=== PATIENT | female | born 1975 | race Caucasian/White ===

== ENCOUNTER 2018-05-09 12:22 | Emergency (ER) | payer SELFPAY | END 2018-05-09 12:35 | disposition left against medical advice (07) | LOC: E/R 12:22 | DX: Z53.21 Procedure and treatment not carried out due to patient leaving prior to being seen by health care provider (principal) ==

== ENCOUNTER 2018-06-21 15:33 | Inpatient (IN) | payer OTHER ==
[~2018-06-21] VITALS: Ht 157.5 cm; Wt 66.3 kg
[2018-06-21] MEDS ORDERED: SOD CHLORIDE 0.9% 1,000 ML IV STA (15:44)
--- NOTE | 2018-06-21 17:19 | ERD ---
ER Documentation Chief Complaint Chief Complaint PROBLEMS WITH EQUILIBRIUM; LEFT SIDED WEAKNESS HPI This is a 42-year-old female with a past medical history of hypertension, hyperlipidemia, diabetes who is presenting with 4 months of progressive worsening balance issues and left-sided weakness. The patient reports that her symptoms have been progressive in nature. She had a problem with her insurance until today, which is why she did not follow-up until now. The patient was seen in the clinic and there were concerns about a possible stroke that occurred 4 months ago, so she was referred to the emergency department for further assessment. The patient has a left-sided facial droop and has weakness to the left. The patient reports that when she walks, she feels very imbalanced and leans to the left. The patient also endorses a waxing and waning mild frontal headache without photophobia or phonophobia or nausea or vomiting. The patient denies feeling sick recently. The patient denies fever or chills. The patient does not endorse neck or back pain. The patient denies dizziness. She does not feel that the room is spinning. The patient has had no chest pain or trouble breathing. The patient denies nausea or vomiting. The patient denies abdominal pain. The patient denies changes to bowel movements. She does endorse a few days of increased urinary frequency and burning. ROS All systems reviewed and are negative except as per history of present illness. Medications Home Meds No Active Prescriptions or Reported Meds Allergies Allergies: Coded Allergies: No Known Allergy (Unverified , 06/21/18) PMhx/Soc Medical and Surgical Hx: pt denies Surgical Hx History of Surgery: No Anesthesia Reaction: No Hx Neurological Disorder: No Hx Respiratory Disorders: No Hx Cardiac Disorders: Yes (Hypertension, hyperlipidemia, diabetes) Hx Psychiatric Problems: No Hx Miscellaneous Medical Probl: No Hx Alcohol Use: No Hx Substance Use: No Hx Tobacco Use: No Smoking Status: Never smoker FmHx Family History: diabetes Physical Exam Vitals Vital Signs Date Temp Pulse Resp B/P (MAP) Pulse Ox O2 O2 Flow FiO2 Time Delivery Rate 06/21/18 97.6 68 20 135/77 100 Room Air 17:37 (96) 06/21/18 70 16 151/100 99 Room Air 16:28 (117) 06/21/18 71 17 141/85 16:24 (103) 06/21/18 78 15 146/87 16:21 (106) 06/21/18 77 18 146/87 97 Room Air 16:06 (106) 06/21/18 98.7 78 18 164/100 100 15:39 (121) Physical Exam Const: No apparent distress, well-developed, well-nourished Head: Normocephalic, Atraumatic Eyes: Normal Conjunctiva. Extraocular movements intact. Pupils equal, round and reactive to light ENT: Normal External Ears, Nose and Mouth. Neck: Full range of motion. No meningismus. Resp: Clear to auscultation bilaterally, No wheezes, rales or rhonchi Cardio: Regular rate and rhythm. No murmurs, rubs or gallops Abd: Soft, non tender, non distended. Normal bowel sounds Skin: No petechiae or rashes Back: No midline tenderness. No CVA tenderness Ext: No cyanosis, or edema Neur: Awake and alert, oriented 4. Left-sided facial droop with forehead sparing. Otherwise, cranial nerves intact. Left-sided 4 out of 5 strength, sensation intact. Psych: Normal Mood and Affect Result Diagram: 06/21/18 1605 06/21/18 1605 Results 24 hrs Laboratory Tests Test 06/21/18 16:02 06/21/18 16:05 06/21/18 16:25 06/21/18 17:16 Bedside Glucose 210 mg/dL White Blood Count 8.4 10^3/ul Red Blood Count 4.43 10^6/ul Hemoglobin 13.1 g/dl Hematocrit 38.4 % Mean Corpuscular 86.7 fl Volume Mean Corpuscular 29.6 pg Hemoglobin Mean Corpuscular 34.1 g/dl Hemoglobin Concen t Red Cell 12.6 % Distribution Width Platelet Count 338 10^3/UL Mean Platelet 9.7 fl Volume Immature 0.500 % Granulocytes % Neutrophils % 59.0 % Lymphocytes % 31.6 % Monocytes % 7.1 % Eosinophils % 0.8 % Basophils % 1.0 % Nucleated Red 0.0 /100WBC Blood Cells % Immature 0.040 10^3/ul Granulocytes # Neutrophils # 5.0 10^3/ul Lymphocytes # 2.7 10^3/ul Monocytes # 0.6 10^3/ul Eosinophils # 0.1 10^3/ul Basophils # 0.1 10^3/ul Nucleated Red 0.0 10^3/ul Blood Cells # Sodium Level 136 mmol/L Potassium Level 4.1 mmol/L Chloride Level 100 mmol/L Carbon Dioxide 24 mmol/L Level Anion Gap 12 Blood Urea 10 mg/dl Nitrogen Creatinine 0.46 mg/dl Est Glomerular > 60 mL/min Filtrat Rate mL/min Glucose Level 212 mg/dl Calcium Level 9.7 mg/dl Troponin I < 0.012 ng/ml Prothrombin Time 15.0 Sec Prothrombin Time 1.2 Ratio INR International 1.17 Normalized Ratio Activated 36.0 Sec Partial Thrombopl ast Time Urine Color YELLOW Urine Clarity CLOUDY Urine pH 6.0 Urine Specific 1.014 [place] Urine Ketones NEGATIVE mg/dL Urine Nitrite POSITIVE mg/dL Urine Bilirubin NEGATIVE mg/dL Urine NEGATIVE mg/dL Urobilinogen Urine Leukocyte TRACE [place]/ul Esterase Urine Microscopic > 182 /HPF RBC Urine Microscopic 171 /HPF WBC Urine Squamous FEW /HPF Epithelial Cells Urine Mucus FEW /HPF Urine Hemoglobin 3+ mg/dL Urine Glucose 3+ mg/dL Urine Total 1+ mg/dl Protein Hemoglobin A1c 8.4 % Triglycerides 950 mg/dl Level Cholesterol Level 288 mg/dl LDL Cholesterol, 68 mg/dl Calculated HDL Cholesterol 30 mg/dl Cholesterol/HDL 9.6 RATIO Ratio POC Beta HCG, NEGATIVE Qualitative Current Medications Medications Dose Sig/Iris Start Time Status Last (Trade) Ordered Route PRN Stop Time Admin Dose Reason Admin Sodium 1,000 ml @ Q1H STAT 06/21/18 DC 06/21/18 Chloride 1,000 mls/hr IV 15:44 16:13 06/21/18 16:43 Ceftriaxone 50 ml @ ONCE ONCE 06/21/18 DC 06/21/18 Sodium 100 mls/hr IVPB 17:30 17:30 06/21/18 17:59 10 mg ONCE ONCE 06/21/18 DC 06/21/18 Dexamethasone IV 19:30 19:21 (Decadron) 06/21/18 19:31 Ondansetron 4 mg BRIDGE ORDER 06/21/18 HCl (Zofran PRN IV 19:30 Inj) NAUSEA/VOMITI 06/22/18 19:29 NG 650 mg ER BRIDGE 06/21/18 Acetaminophen PRN PO 19:30 (Tylenol .MILD PAIN 06/22/18 19:29 Tab) 1-3 OR TEMP 100 ml @ ONCE ONCE 06/21/18 DC Levetiracetam 400 mls/hr IVPB 19:30 06/21/18 19:44 Ceftriaxone 50 ml @ Q24H IVPB 06/22/18 Sodium 100 mls/hr 17:00 IV Flush 3 ml PER 06/21/18 (NS 3 ml) PROTOCOL IV 20:30 Ondansetron 4 mg Q6H PRN 06/21/18 HCl (Zofran IV 20:30 Inj) NAUSEA/VOMITI NG Fenofibrate 145 mg DAILY PO 06/22/18 UNV (Tricor) 09:00 500 mg BID PO 06/21/18 UNV Levetiracetam 21:00 (Keppra) 4 mg Q6 IV 06/22/18 UNV Dexamethasone 00:00 (Decadron) Discontinue ONCE ONCE 06/21/18 UNV Miscellaneous current oral XX 20:30 sulfonylur... 06/21/18 20:31 Information (* Miscellaneous Pharmacy Order) Diagnostic 1 ea 02 XX 06/22/18 UNV Test (Pha) 02:00 (Accu-Chek) ONCE ONCE 06/21/18 UNV Miscellaneous HYPOGLYCEMIA XX 20:30 PROTOCOL 06/21/18 20:31 Information w... (* Miscellaneous Pharmacy Order) Insulin NOVOLOG WITH MEALS 06/21/18 UNV Aspart *MILD* BEDTIME SC 21:00 (Novolog ALGORITHM Insulin Pen) Discontinue ONCE ONCE 06/21/18 UNV Miscellaneous all previ... XX 20:30 06/21/18 20:31 Information (* Miscellaneous Pharmacy Order) Procedures/MDM MDM The patient's presentation warrants further investigation. Previous medical records, if available, were reviewed. LABS The patient's laboratory testing was obtained and reviewed. No emergent treatmen t was required unless described below. CBC: No E/o of systemic infection or severe anemia or thrombocytopenia BMP: No E/o severe acidosis or alkalosis or renal failure or diabetic ketoacidosis PT/INR: No E/o significant coagulopathy Troponin: No E/o acute ischemia Urine: E/o acute infection with hematuria EKG EKG read by me: Rate/Rhythm: Regular rate and rhythm at a rate of 73 bpm Intervals: Normal [place]: Normal Impression: No evidence of acute ischemia or arrhythmia IMAGING Imaging and Radiology interpretation reviewed. CXR FINDINGS: The heart and mediastinum are within normal limits. The lungs are clear. There is no pleural effusion or pneumothorax. IMPRESSION: No acute disease. Electronically viewed and signed by .Griffin Waggoner MD, MD on 06/21/2018 16:17 CT Head FINDINGS: Infiltrative high density with splayed butterfly-like appearance within the deep white matter of the right frontal and parietal lobes with surrounding vasogenic edema, effacing the oconnor-white matter distinction in the right frontal lobe and causing mass effect upon the ipsilateral right lateral ventricle. There is at least 9-10 mm leftward midline shift with bowing of the sagittal falx. High density also crosses the anterior corpus callosum with lesser degree of vasogenic edema in the left frontal lobe. The osseous structures and visualized paranasal sinuses are unremarkable. The surrounding soft tissue scalp and bony calvarium are intact and normal. IMPRESSION: 1. Infiltrative high density within the right frontal and parietal lobes associated with surrounding vasogenic edema, effacement of the oconnor-white matter distinction and mass effect upon the ipsilateral lateral ventricle and with marked leftward midline shift measuring 9-10 mm. Though the infiltrative appearance with high density is suggestive of highly cellular neoplastic process, acute or superimposed intra-axial hemorrhage cannot be excluded on noncontrast head CT. Close clinical observation is recommended with a low threshold for repeat imaging. 2. Vasogenic edema and high density crossing the anterior corpus callosum to the contralateral left frontal lobe. Underlying glioblastoma and lymphoma are leading considerations. MR brain with contrast is recommended to assess for underlying tumor. These findings were discussed with Genesis Flaherty at 06/21/2018 5:05:12 PM. Electronically viewed and signed by Papo Mathias Physician [facility] on 06/21/2018 17:18 TREATMENT/DISPOSITION The patient presents with left-sided neurologic findings that were very concerning for a right-sided cerebral pathology. The patient CT scan is concerning for a possible brain mass with significant vasogenic edema. There is also areas of hyperintensity that the radiologist could not definitively rule out for hemorrhage. The patient's symptoms have been progressive and subtle. There are no acute changes today to prompt her emergency department visit aside from her gaining insurance. I have decreased suspicion for an acute bleed. I do have higher suspicion for a brain mass such as glioblastoma multiforme. The on-call neurosurgeon, Dr. Chang, was called to discuss the case. He felt that the patient could be appropriately treated in our facility. The patient was initially treated with IV fluids given concerns of presyncope. The patient was later given a dose of Decadron in the emergency department to improve the cerebral edema. The patient was also given a dose of Keppra for seizure prophylaxis. A pre-syncope workup was also completed. The patient is not toxic appearing. I have decreased suspicion for an emergent infectious etiology of symptoms. The patient also has evidence of urinary tract infection. This was treated with Rocephin. The patient is not clinically orthostatic. The patient is not dizzy. I have decreased suspicion for vertigo. The patient has no signs of emergent or symptomatic anemia. The patient does not have any emergent electrolyte or metabolic emergencies. I have decrease suspicion for a thyroid disorder. The patient's EKG and troponin are reassuring. I have low suspicion for acute coronary syndrome. I do not see evidence of any emergent cardiac arrhythmia, which includes but is not limited to heart block, Brugada syndrome or WPW. The patient has no heart murmurs or rales. There is no evidence of cardiomegaly on exam or chest xray. I have low suspicion for hypertrophic cardiomyopathy. I do not see evidence of CHF. The patient does not endorse any chest or pleuritic pain. The history is negative for bleeding or clotting disorders. The patient has not been involved in any recent prolonged trips or surgeries or hospitalizations. The patient has no calf tenderness or swelling. I have decreased suspicion for PE as the etiology of symptoms. CRITICAL CARE NOTE Time: 35 minutes excluding all billable procedures. Treatments/Evaluations: The patient was at risk of hemodynamic compromise. Timing of critical care involved close serial monitoring, evaluation of the patient's medical record including previous records & current laboratory/imaging studies, potential interventions for prevention of hemodynamic/ cardiopulmonary/ neurologic compromise, maintaining tight fluid balance, and any discussions with the family and/or consultants regarding the patient's status and prognosis. ADMISSION At this time, I feel that the patient requires admission for further evaluation and management. The patient will be admitted to panel in accordance with the patient's insurance. The patient was accepted by Dr. Ramos at 7:22 PM on June 21, 2018. Dr. Chang, the oncall neurosurgeon was consulted. He will evaluated the patient in the hospital for possible operative intervention. Disclaimer: Inadvertent spelling and grammatical errors are likely due to EHR/dictation software use and do not reflect on the overall quality of patient care. Note that the electronic time recorded on this note does not necessarily reflect the actual time of the patient encounter. Departure Diagnosis: Primary Impression: Brain mass Additional Impressions: Vasogenic cerebral edema Left-sided weakness Discoordination Urinary tract infection Urinary tract infection type: acute cystitis Hematuria presence: with hematuria Qualified Codes: N30.01 - Acute cystitis with hematuria Hypertriglyceridemia Hyperlipidemia Hyperlipidemia type: unspecified Qualified Codes: E78.5 - Hyperlipidemia, unspecified Condition: Serious GENESIS STOCKTON MD Jun 21, 2018 17:18
[2018-06-21] MEDS ORDERED: CEFTRIAXONE 1 GM/50 ML (PMX) 50 ML IVPB ONE (17:30)
[2018-06-21] MEDS ORDERED: ONDANSETRON 4 MG INJ IV PRN ×2 (19:30→20:30)
[2018-06-21] MEDS ORDERED: DEXAMETHASONE 10 MG/ML 1 ML INJ IV ONE (19:30)
[2018-06-21] MEDS ORDERED: ACETAMINOPHEN 325 MG TAB PO PRN (19:30)
[2018-06-21] MEDS ORDERED: LEVETIRACETAM 1000 MG (PMX) 100 ML IVPB ONE (19:30)
[2018-06-21] MEDS ORDERED: NACL 0.9% 3 ML SYG IV SCH (20:30)
[2018-06-21] MEDS ORDERED: INSULIN ASPART [NOVOLOG] 3 ML PEN SC SCH (21:00)
[2018-06-21] MEDS: LEVETIRACETAM 500 MG TAB PO SCH (22:21)
[2018-06-21] MEDS ORDERED: GLUCOSE GEL 15 GRAM TUBE PO PRN ×4 (22:30→23:45)
[2018-06-21] MEDS ORDERED: DEXTROSE 50% 50 ML SYRINGE IV PRN ×4 (22:30→23:45)
[2018-06-21] MEDS ORDERED: GLUCOSE GEL 15 GRAM TUBE BUCCAL PRN ×2 (22:30→23:45)
[2018-06-21] MEDS ORDERED: GLUCAGON 1 MG INJ IM PRN ×2 (22:30→23:45)
--- NOTE | 2018-06-21 22:57 | HP ---
Date/Time of Note Date/Time of Note DATE: 06/21/18 TIME: 22:57 Assessment/Plan VTE Prophylaxis Pharmacological prophylaxis: other Lines/Catheters IV Catheter Type (from Nrs): Saline Lock Assessment/Plan Hospital Course Objective Physical exam General: Patient is laying in bed and answers questions appropriately Mentation: Patient is alert and oriented 4, Head: Normocephalic atraumatic Eyes: EOMI, pupils reactive to light Neck: Supple, nontender, midline Respiratory: Clear to auscultation bilaterally Cardiovascular: regular rate, no obvious murmurs Gastrointestinal: non-tender to palpation, bowel sounds heard. 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 Diabetes mellitus -Insulin while in house Dyslipidemia -Patient had elevated triglyceride, however cannot pinpoint the time that she last ate, will repeat lipid panel in the morning to confirm if she truly does have triglycerides in the 900s -We will reevaluate lipid panel tomorrow morning before initiating therapy. Disposition -Continue steroids, neurosurgeon evaluation pending Result Diagram: 06/21/18 1605 06/21/18 1605 Results 24hrs Laboratory Tests Test 06/21/18 16:02 06/21/18 16:05 06/21/18 16:25 06/21/18 17:16 Bedside Glucose 210 White Blood Count 8.4 Red Blood Count 4.43 Hemoglobin 13.1 Hematocrit 38.4 Mean Corpuscular 86.7 Volume Mean Corpuscular 29.6 Hemoglobin Mean Corpuscular 34.1 Hemoglobin Concent Red Cell 12.6 Distribution Width Platelet Count 338 Mean Platelet Volume 9.7 Immature 0.500 H Granulocytes % Neutrophils % 59.0 Lymphocytes % 31.6 Monocytes % 7.1 Eosinophils % 0.8 Basophils % 1.0 Nucleated Red Blood 0.0 Cells % Immature 0.040 H Granulocytes # Neutrophils # 5.0 Lymphocytes # 2.7 Monocytes # 0.6 Eosinophils # 0.1 Basophils # 0.1 Nucleated Red Blood 0.0 Cells # Sodium Level 136 Potassium Level 4.1 Chloride Level 100 Carbon Dioxide Level 24 Anion Gap 12 Blood Urea Nitrogen 10 Creatinine 0.46 Est Glomerular > 60 Filtrat Rate mL/min Glucose Level 212 Calcium Level 9.7 Troponin I < 0.012 Prothrombin Time 15.0 H Prothrombin Time 1.2 Ratio INR International 1.17 Normalized Ratio Activated 36.0 H Partial Thromboplast Time Urine Color YELLOW Urine Clarity CLOUDY A Urine pH 6.0 Urine Specific 1.014 [place] Urine Ketones NEGATIVE Urine Nitrite POSITIVE A Urine Bilirubin NEGATIVE Urine Urobilinogen NEGATIVE Urine Leukocyte TRACE A Esterase Urine Microscopic > 182 H RBC Urine Microscopic 171 H WBC Urine Squamous FEW Epithelial Cells Urine Mucus FEW A Urine Hemoglobin 3+ H Urine Glucose 3+ H Urine Total Protein 1+ H Hemoglobin A1c 8.4 H Triglycerides Level 950 H Cholesterol Level 288 H LDL Cholesterol, 68 Calculated HDL Cholesterol 30 L Cholesterol/HDL 9.6 Ratio POC Beta HCG, NEGATIVE Qualitative Test 06/21/18 20:51 Bedside Glucose 218 HPI/ROS Admit Date/Time Admit Date/Time Hx of Present Illness Patient is a female with a past medical history significant for hypertension, dyslipidemia, diabetes mellitus who presents to [facility] after being sent by her primary care provider. Patient has been suffering for 4 months of progressively worsening balance issues as well as intermittent left-sided upper extremity and lower extremity weakness. Patient had multiple insurance issues and has not been able to follow-up with the regular doctor. Patient states that she feels well but she does have left-sided weakness that comes and goes. Patient does have a very small headache at this time but otherwise has no acute complaints. Patient denies chest pain, shortness of breath, nausea, vomiting, abdominal pain, leg pain PMH/Family/Social Past Medical History Medications Current Medications Acetaminophen (Tylenol Tab) 650 mg ER BRIDGE PRN PO .MILD PAIN 1-3 OR TEMP; Start 06/21/18 at 19:30; Stop 06/22/18 at 19:29 Ceftriaxone Sodium 50 ml @ 100 mls/hr Q24H IVPB ; Start 06/22/18 at 17:00 IV Flush (NS 3 ml) 3 ml PER PROTOCOL IV ; Start 06/21/18 at 20:30 Ondansetron HCl (Zofran Inj) 4 mg Q6H PRN IV NAUSEA/VOMITING; Start 06/21/18 at 20:30 Fenofibrate (Tricor) 145 mg DAILY PO ; Start 06/22/18 at 09:00 Levetiracetam (Keppra) 500 mg BID PO Last administered on 06/21/18at 22:21; Admin Dose 500 MG; Start 06/21/18 at 21:00 Dexamethasone (Decadron) 4 mg Q6 IV ; Start 06/22/18 at 00:00 Diagnostic Test (Pha) (Accu-Chek) 1 ea 02 XX ; Start 06/22/18 at 02:00 Insulin Aspart (Novolog Insulin Pen) NOVOLOG *MILD* ALGORITHM WITH MEALS BEDTIME SC Last administered on 06/21/18at 21:15; Admin Dose 1 UNIT; Start 06/21/18 at 21:00 Miscellaneous Information 1 ea NOTE XX ; Start 06/21/18 at 22:30 Glucose (Glutose) 15 gm Q15M PRN PO DECREASED GLUCOSE; Start 06/21/18 at 22:30 Glucose (Glutose) 22.5 gm Q15M PRN PO DECREASED GLUCOSE; Start 06/21/18 at 22:30 Dextrose (D50w Syringe) 25 ml Q15M PRN IV DECREASED GLUCOSE; Start 06/21/18 at 22:30 Dextrose (D50w Syringe) 50 ml Q15M PRN IV DECREASED GLUCOSE; Start 06/21/18 at 22:30 Glucagon (Glucagen) 1 mg Q15M PRN IM DECREASED GLUCOSE; Start 06/21/18 at 22:30 Glucose (Glutose) 15 gm Q15M PRN BUCCAL DECREASED GLUCOSE; Start 06/21/18 at 22:30 Coded Allergies: No Known Allergy (Unverified , 06/21/18) Social History Smoking Status: Never smoker Exam/Review of Systems Vital Signs Vitals Vital Signs Date Temp Pulse Resp B/P (MAP) Pulse Ox O2 O2 Flow FiO2 Time Delivery Rate 06/21/18 98.3 87 18 109/81 98 Room Air 22:30 (90) ELODIA GRACE Jun 21, 2018 22:57
[2018-06-22] MEDS: DEXAMETHASONE 4 MG/ML 1 ML INJ IV SCH ×4 (00:05→17:41)
[2018-06-22 00:15] VITALS: Ht 157.5 cm; Wt 66.3 kg
[2018-06-22 00:45] VITALS: BP 130/61; PULSE 85; RESP 16
[2018-06-22] MEDS: ACCU-CHEK XX SCH (02:00)
[2018-06-22 02:44] VITALS: BP 103/57; PULSE 76; RESP 16
[2018-06-22] MEDS ORDERED: INSULIN ASPART [NOVOLOG] 3 ML PEN SC ONE (03:30)
[2018-06-22] MEDS ORDERED: INSULIN ASPART [NOVOLOG] 3 ML PEN SC SCH ×2 (05:00→17:35)
[2018-06-22] MEDS: Insulin NOVOLOG SS MODERATE Algorithm(NPO/TPN/ENTERAL FEEDS) SC SCH ×3 (05:28→12:43)
[2018-06-22 07:55] VITALS: BP 111/64; PULSE 67; RESP 17
[2018-06-22] MEDS: LEVETIRACETAM 500 MG TAB PO SCH ×2 (08:23→20:47)
[2018-06-22] MEDS ORDERED: FENOFIBRATE 145 MG TAB PO SCH (09:00)
--- NOTE | 2018-06-22 13:30 | PN ---
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 Titrate daily Discharge plan pending workup Result Diagram: 06/21/18 1605 06/21/18 1605 Results 24hrs Laboratory Tests Test 06/21/18 16:02 06/21/18 16:05 06/21/18 16:25 06/21/18 17:16 Bedside Glucose 210 White Blood Count 8.4 Red Blood Count 4.43 Hemoglobin 13.1 Hematocrit 38.4 Mean Corpuscular 86.7 Volume Mean Corpuscular 29.6 Hemoglobin Mean Corpuscular 34.1 Hemoglobin Concent Red Cell 12.6 Distribution Width Platelet Count 338 Mean Platelet Volume 9.7 Immature 0.500 H Granulocytes % Neutrophils % 59.0 Lymphocytes % 31.6 Monocytes % 7.1 Eosinophils % 0.8 Basophils % 1.0 Nucleated Red Blood 0.0 Cells % Immature 0.040 H Granulocytes # Neutrophils # 5.0 Lymphocytes # 2.7 Monocytes # 0.6 Eosinophils # 0.1 Basophils # 0.1 Nucleated Red Blood 0.0 Cells # Sodium Level 136 Potassium Level 4.1 Chloride Level 100 Carbon Dioxide Level 24 Anion Gap 12 Blood Urea Nitrogen 10 Creatinine 0.46 Est Glomerular > 60 Filtrat Rate mL/min Glucose Level 212 Calcium Level 9.7 Troponin I < 0.012 Prothrombin Time 15.0 H Prothrombin Time 1.2 Ratio INR International 1.17 Normalized Ratio Activated 36.0 H Partial Thromboplast Time Urine Color YELLOW Urine Clarity CLOUDY A Urine pH 6.0 Urine Specific 1.014 Hoskins Urine Ketones NEGATIVE Urine Nitrite POSITIVE A Urine Bilirubin NEGATIVE Urine Urobilinogen NEGATIVE Urine Leukocyte TRACE A Esterase Urine Microscopic > 182 H RBC Urine Microscopic 171 H WBC Urine Squamous FEW Epithelial Cells Urine Mucus FEW A Urine Hemoglobin 3+ H Urine Glucose 3+ H Urine Total Protein 1+ H Hemoglobin A1c 8.4 H Triglycerides Level 950 H Cholesterol Level 288 H LDL Cholesterol, 68 Calculated HDL Cholesterol 30 L Cholesterol/HDL 9.6 Ratio POC Beta HCG, NEGATIVE Qualitative Test 06/21/18 20:51 06/22/18 02:01 06/22/18 03:22 06/22/18 05:23 Bedside Glucose 218 395 H 329 H 308 H Test 06/22/18 06:06 06/22/18 08:02 06/22/18 12:11 Hemoglobin A1c 9.6 H Triglycerides Level 327 H Cholesterol Level 301 H LDL Cholesterol, 188 # Calculated HDL Cholesterol 48 # Cholesterol/HDL 6.2 Ratio Bedside Glucose 254 H 367 H Subjective 24 Hr Interval Summary Free Text/Dictation Feels well no physical compliants Aware of likely new diagnosis of brain cancer Exam/Review of Systems Exam Vitals Vital Signs Date Temp Pulse Resp B/P (MAP) Pulse Ox O2 O2 Flow FiO2 Time Delivery Rate 06/22/18 98.3 67 17 111/64 100 07:55 (80) 06/22/18 Room Air 00:05 Constitutional: alert, oriented, well developed Psych: no complaints, nl mood/affect Head: normocephalic, atraumatic Eyes: nl conjunctiva, EOMI, nl lids, nl sclera, PERRL ENMT: nl external ears & nose, nl lips & teeth, nl nasal mucosa & septum Neck: supple, non-tender Respiratory: clear to auscultation, normal air movement Cardiovascular: regular rate and rhythm, nl pulses Gastrointestinal: soft, nl liver, spleen, non-tender Musculoskeletal: nl extremities to inspection, nl gait and stance Extremities: normal pulses Neurological: BASKETBALL REFEREE II-XII intact, nl mental status, nl speech, nl strength Skin: nl turgor; No rash or lesions Lymph: nl lymph nodes Results Results 24hrs Laboratory Tests Test 06/21/18 16:02 06/21/18 16:05 06/21/18 16:25 06/21/18 17:16 Bedside Glucose 210 White Blood Count 8.4 Red Blood Count 4.43 Hemoglobin 13.1 Hematocrit 38.4 Mean Corpuscular 86.7 Volume Mean Corpuscular 29.6 Hemoglobin Mean Corpuscular 34.1 Hemoglobin Concent Red Cell 12.6 Distribution Width Platelet Count 338 Mean Platelet Volume 9.7 Immature 0.500 H Granulocytes % Neutrophils % 59.0 Lymphocytes % 31.6 Monocytes % 7.1 Eosinophils % 0.8 Basophils % 1.0 Nucleated Red Blood 0.0 Cells % Immature 0.040 H Granulocytes # Neutrophils # 5.0 Lymphocytes # 2.7 Monocytes # 0.6 Eosinophils # 0.1 Basophils # 0.1 Nucleated Red Blood 0.0 Cells # Sodium Level 136 Potassium Level 4.1 Chloride Level 100 Carbon Dioxide Level 24 Anion Gap 12 Blood Urea Nitrogen 10 Creatinine 0.46 Est Glomerular > 60 Filtrat Rate mL/min Glucose Level 212 Calcium Level 9.7 Troponin I < 0.012 Prothrombin Time 15.0 H Prothrombin Time 1.2 Ratio INR International 1.17 Normalized Ratio Activated 36.0 H Partial Thromboplast Time Urine Color YELLOW Urine Clarity CLOUDY A Urine pH 6.0 Urine Specific 1.014 Hoskins Urine Ketones NEGATIVE Urine Nitrite POSITIVE A Urine Bilirubin NEGATIVE Urine Urobilinogen NEGATIVE Urine Leukocyte TRACE A Esterase Urine Microscopic > 182 H RBC Urine Microscopic 171 H WBC Urine Squamous FEW Epithelial Cells Urine Mucus FEW A Urine Hemoglobin 3+ H Urine Glucose 3+ H Urine Total Protein 1+ H Hemoglobin A1c 8.4 H Triglycerides Level 950 H Cholesterol Level 288 H LDL Cholesterol, 68 Calculated HDL Cholesterol 30 L Cholesterol/HDL 9.6 Ratio POC Beta HCG, NEGATIVE Qualitative Test 06/21/18 20:51 06/22/18 02:01 06/22/18 03:22 06/22/18 05:23 Bedside Glucose 218 395 H 329 H 308 H Test 06/22/18 06:06 06/22/18 08:02 06/22/18 12:11 Hemoglobin A1c 9.6 H Triglycerides Level 327 H Cholesterol Level 301 H LDL Cholesterol, 188 # Calculated HDL Cholesterol 48 # Cholesterol/HDL 6.2 Ratio Bedside Glucose 254 H 367 H Medications Medication Current Medications Acetaminophen (Tylenol Tab) 650 mg ER BRIDGE PRN PO .MILD PAIN 1-3 OR TEMP; Start 06/21/18 at 19:30; Stop 06/22/18 at 19:29 Ceftriaxone Sodium 50 ml @ 100 mls/hr Q24H IVPB ; Start 06/22/18 at 17:00 IV Flush (NS 3 ml) 3 ml PER PROTOCOL IV ; Start 06/21/18 at 20:30 Ondansetron HCl (Zofran Inj) 4 mg Q6H PRN IV NAUSEA/VOMITING; Start 06/21/18 at 20:30 Levetiracetam (Keppra) 500 mg BID PO Last administered on 06/22/18at 08:23; Admin Dose 500 MG; Start 06/21/18 at 21:00 Dexamethasone (Decadron) 4 mg Q6 IV Last administered on 06/22/18at 12:42; Admin Dose 4 MG; Start 06/22/18 at 00:00 Diagnostic Test (Pha) (Accu-Chek) 1 ea 02 XX ; Start 06/22/18 at 02:00 Miscellaneous Information 1 ea NOTE XX ; Start 06/21/18 at 22:30 Dextrose (D50w Syringe) 25 ml Q15M PRN IV DECREASED GLUCOSE; Start 06/21/18 at 22:30 Dextrose (D50w Syringe) 50 ml Q15M PRN IV DECREASED GLUCOSE; Start 06/21/18 at 22:30 Glucagon (Glucagen) 1 mg Q15M PRN IM DECREASED GLUCOSE; Start 06/21/18 at 22:30 Glucose (Glutose) 15 gm Q15M PRN PO DECREASED GLUCOSE; Start 06/21/18 at 23:45 Glucose (Glutose) 22.5 gm Q15M PRN PO DECREASED GLUCOSE; Start 06/21/18 at 23:45 Glucose (Glutose) 15 gm Q15M PRN BUCCAL DECREASED GLUCOSE; Start 06/21/18 at 23:45 Insulin Aspart (Novolog Insulin Pen) (Adult SC Insulin - Moder... Q4 SC Last administered on 06/22/18at 12:43; Admin Dose 12 UNIT; Start 06/22/18 at 05:00 SYED ALFRED MD Jun 22, 2018 13:30
[2018-06-22 14:33] VITALS: BP 133/76; PULSE 87; RESP 19
[2018-06-22] MEDS ORDERED: CEFTRIAXONE 1 GM/50 ML (PMX) 50 ML IVPB SCH (17:00)
[2018-06-22] MEDS: INSULIN ASPART [NOVOLOG] 3 ML PEN SC SCH ×2 (17:38→20:47)
--- NOTE | 2018-06-22 19:56 | CONS ---
Assessment/Plan Assessment/Plan Problems: (1) Brain mass Status: Acute Assessment/Plan (Daily) Intrinsic brain tumor with avid enhancement, satellite lesions, concerning for glioblastoma. This is a large and deep seated tumor and will require specialized treatment. The patient is neurologically intact and presents with a several month history of complaints; I believe it is safe to discharge the patient and she may follow up with me pending scheduling of surgery at a tertiary referral center. The patient and her were advised to return to ER if she has any new or worsened symptoms pending her office visit with me, which was scheduled for Monday AM at 0845. Consultation Date/Type/Reason Admit Date/Time Date of Consultation: Jun 22, 2018 Type of Consult neurological surgery Date/Time of Note DATE: 06/22/18 TIME: 19:50 Hx of Present Illness The patient is a 42 year old female who describes not feeling well since January 2018. She complains of dizziness, imbalance, and fatigue. She denies headache. Her PCP ordered a CT scan and this showed a large intra-axial mass, f or which she was referred to ER. Subsequent MRI shows large intra-axial enhancing mass with satellite lesions, edema, compression of ventricular system. She denies any personal significant medical history. No hx of CA. Past Medical History Home Meds No Active Prescriptions or Reported Meds Medications Current Medications Ceftriaxone Sodium 50 ml @ 100 mls/hr Q24H IVPB Last administered on 06/22/18at 17:41; Admin Dose 100 MLS/HR; Start 06/22/18 at 17:00 IV Flush (NS 3 ml) 3 ml PER PROTOCOL IV ; Start 06/21/18 at 20:30 Ondansetron HCl (Zofran Inj) 4 mg Q6H PRN IV NAUSEA/VOMITING; Start 06/21/18 at 20:30 Levetiracetam (Keppra) 500 mg BID PO Last administered on 06/22/18at 08:23; Admin Dose 500 MG; Start 06/21/18 at 21:00 Dexamethasone (Decadron) 4 mg Q6 IV Last administered on 06/22/18at 17:41; Admin Dose 4 MG; Start 06/22/18 at 00:00 Diagnostic Test (Pha) (Accu-Chek) 1 ea 02 XX ; Start 06/22/18 at 02:00 Miscellaneous Information 1 ea NOTE XX ; Start 06/21/18 at 22:30 Dextrose (D50w Syringe) 25 ml Q15M PRN IV DECREASED GLUCOSE; Start 06/21/18 at 22:30 Dextrose (D50w Syringe) 50 ml Q15M PRN IV DECREASED GLUCOSE; Start 06/21/18 at 22:30 Glucagon (Glucagen) 1 mg Q15M PRN IM DECREASED GLUCOSE; Start 06/21/18 at 22:30 Glucose (Glutose) 15 gm Q15M PRN PO DECREASED GLUCOSE; Start 06/21/18 at 23:45 Glucose (Glutose) 22.5 gm Q15M PRN PO DECREASED GLUCOSE; Start 06/21/18 at 23:45 Glucose (Glutose) 15 gm Q15M PRN BUCCAL DECREASED GLUCOSE; Start 06/21/18 at 23:45 Insulin Glargine (Lantus) 17 units DAILY@2000 SC ; Start 06/22/18 at 20:00 Insulin Aspart (Novolog Insulin Pen) 4 unit WITH MEALS SC Last administered on 06/22/18at 17:37; Admin Dose 4 UNIT; Start 06/22/18 at 17:35 Insulin Aspart (Novolog Insulin Pen) NOVOLOG *MODERATE* ALGORITHM WITH MEALS BEDTIME SC Last administered on 06/22/18at 17:38; Admin Dose 10 UNIT; Start 06/22/18 at 18:05 Allergies: Coded Allergies: No Known Allergy (Unverified , 06/21/18) Social History Smoking Status: Never smoker Exam/Review of Systems Exam Vitals Vital Signs Date Temp Pulse Resp B/P (MAP) Pulse Ox O2 O2 Flow FiO2 Time Delivery Rate 06/22/18 98.0 87 19 133/76 97 14:33 (95) 06/22/18 Room Air 00:05 Constitutional: alert, oriented, well developed Psych: no complaints, nl mood/affect Head: normocephalic, atraumatic Eyes: nl conjunctiva, EOMI, nl lids ENMT: nl external ears & nose, nl lips & teeth, nl nasal mucosa & septum Neck: supple, non-tender Musculoskeletal: nl extremities to inspection, nl gait and stance Neurological: INTERNAL SALESPERSON II-XII intact, nl mental status, nl speech, nl strength Results Result Diagram: 06/21/18 1605 06/21/18 1605 Results 24hrs Laboratory Tests Test 06/21/18 20:51 2/15/19 02:01 06/22/18 03:22 06/22/18 05:23 Bedside Glucose 218 395 H 329 H 308 H Test 06/22/18 06:06 06/22/18 08:02 06/22/18 12:11 06/22/18 17:02 Hemoglobin A1c 9.6 H Triglycerides Level 327 H Cholesterol Level 301 H LDL Cholesterol, 188 # Calculated HDL Cholesterol 48 # Cholesterol/HDL 6.2 Ratio Bedside Glucose 254 H 367 H 301 H Imaging Imaging Large right frontal enhancing mass with edema in corpus callosum and possible satellite lesions. No evidence of hydrocephalus, Medications Medication Current Medications Ceftriaxone Sodium 50 ml @ 100 mls/hr Q24H IVPB Last administered on 06/22/18at 17:41; Admin Dose 100 MLS/HR; Start 06/22/18 at 17:00 IV Flush (NS 3 ml) 3 ml PER PROTOCOL IV ; Start 06/21/18 at 20:30 Ondansetron HCl (Zofran Inj) 4 mg Q6H PRN IV NAUSEA/VOMITING; Start 06/21/18 at 20:30 Levetiracetam (Keppra) 500 mg BID PO Last administered on 06/22/18at 08:23; Admin Dose 500 MG; Start 06/21/18 at 21:00 Dexamethasone (Decadron) 4 mg Q6 IV Last administered on 06/22/18at 17:41; Admin Dose 4 MG; Start 06/22/18 at 00:00 Diagnostic Test (Pha) (Accu-Chek) 1 ea 02 XX ; Start 06/22/18 at 02:00 Miscellaneous Information 1 ea NOTE XX ; Start 06/21/18 at 22:30 Dextrose (D50w Syringe) 25 ml Q15M PRN IV DECREASED GLUCOSE; Start 06/21/18 at 22:30 Dextrose (D50w Syringe) 50 ml Q15M PRN IV DECREASED GLUCOSE; Start 06/21/18 at 22:30 Glucagon (Glucagen) 1 mg Q15M PRN IM DECREASED GLUCOSE; Start 06/21/18 at 22:30 Glucose (Glutose) 15 gm Q15M PRN PO DECREASED GLUCOSE; Start 06/21/18 at 23:45 Glucose (Glutose) 22.5 gm Q15M PRN PO DECREASED GLUCOSE; Start 06/21/18 at 23:45 Glucose (Glutose) 15 gm Q15M PRN BUCCAL DECREASED GLUCOSE; Start 06/21/18 at 23:45 Insulin Glargine (Lantus) 17 units DAILY@2000 SC ; Start 06/22/18 at 20:00 Insulin Aspart (Novolog Insulin Pen) 4 unit WITH MEALS SC Last administered on 06/22/18at 17:37; Admin Dose 4 UNIT; Start 06/22/18 at 17:35 Insulin Aspart (Novolog Insulin Pen) NOVOLOG *MODERATE* ALGORITHM WITH MEALS BEDTIME SC Last administered on 06/22/18at 17:38; Admin Dose 10 UNIT; Start 06/22/18 at 18:05 SHIVAM NORTH MD Jun 22, 2018 19:56
[2018-06-22] MEDS ORDERED: INSULIN GLARGINE [LANTus] (100 UNITS/ML) SYG SC SCH (20:00)
[2018-06-22 20:20] VITALS: BP 108/67; PULSE 75; RESP 18
[2018-06-23] MEDS: DEXAMETHASONE 4 MG/ML 1 ML INJ IV SCH ×3 (00:20→12:16)
[2018-06-23] MEDS ORDERED: INSULIN GLARGINE [LANTus] (100 UNITS/ML) SYG SC ONE (01:30)
[2018-06-23] MEDS: ACCU-CHEK XX SCH (01:42)
[2018-06-23 02:11] VITALS: BP 101/59; PULSE 62; RESP 18
[2018-06-23] MEDS ORDERED: INSULIN ASPART [NOVOLOG] 3 ML PEN SC ONE (06:00)
[2018-06-23 08:00] VITALS: BP 127/75; PULSE 69; RESP 20
[2018-06-23] MEDS: INSULIN ASPART [NOVOLOG] 3 ML PEN SC SCH ×4 (08:26→12:18)
[2018-06-23] MEDS: LEVETIRACETAM 500 MG TAB PO SCH (08:27)
[2018-06-23] MEDS ORDERED: metFORMIN 850 MG TAB PO SCH (13:00)
--- NOTE | 2018-06-23 13:00 | DS ---
Date/Time of Note Date/Time of Note DATE: 06/23/18 TIME: 12:56 Discharge Summary Admission/Discharge Info Admit Date/Time Jun 21, 2018 at 19:19 Discharge Date/Time June 23 2018 Discharge Diagnosis Glioblastoma multiforme; diabetes mellitus type 2; Patient Condition: Fair Consults Neurosurgery-Dr. Cam Chang Procedures PROCEDURE: MR Brain with and without gadolinium. CLINICAL INDICATION: Brain mass. TECHNIQUE: An MRI of the brain was performed on a Signa 3 Lia scanner utilizing the following sequences: Sagittal and axial T1 weighted, axial T2 weighted, axial T2 FLAIR, coronal GRE, and axial diffusion weighted with ADC mapping. Additionally, postcontrast axial, sagittal and coronal T1-weighted sequences were performed after 10 cc of ProHance were given intravenously without complication. COMPARISON: Unenhanced CT head 06/21/2018. FINDINGS: Study technically degraded by patient motion artifact on postcontrast acquisitions, limiting sensitivity. Extensive 7.9 x 9.2 x 7.3 cm predominately right-sided bifrontoparietal and right gangliocapsular and thalamic heterogeneously enhancing and nonenhancing hypercellular infiltrative mass crossing the callosal body and genu with invol vement of the septum pellucidum, diffusely scattered heterogeneous cystic components and extensive right frontal transcortical involvement, likely reflecting high-grade primary glial neoplasm such as glioblastoma multiforme. Centrally necrotic, avidly peripherally enhancing 3.1 x 2.6 x 3.7 cm component in the medial right posterior frontal lobe involving the parasagittal cortex and cingulate gyrus. Additional avidly enhancing nodular components measure 15 x 8 x 14 mm in the right posterior frontal deep white matter, 9 x 6 x 8 mm in the subcortical right posterior frontal convexity, 4 x 3 x 4 mm in the subcortical right posterior right superior frontal gyrus, and 6 x 5 x 5 mm in the subcortical parasagittal right frontal lobe. Surrounding vasogenic edema cannot be reliably differentiated from non-enhancing infiltrative neoplasm in the absence of perfusion imaging. No acute infarct. Associated predominately right-sided mass effect effaces the bifrontal and right parietal sulci, right sylvian fissure and suprasellar cistern, subtotally effaces the right worse than left lateral ventricular bodies and frontal horns as well as the right trigone, and results in 5 mm leftward midline shift at the foramen of Monro and posterior third ventricle with subfalcine herniation of the right cingulate gyrus. Slightly bulbous left temporal horn may reflect early ventricular entrapment. Central intracranial flow voids appear grossly intact. Dural venous sinuses, which this examination is not tailored to evaluate, appear to enhance normally. Visualized paranasal sinuses and mastoid air cells are essentially clear. Slight leftward nasal septal deviation. Intraorbital soft tissues appear grossly normal. Calvarial marrow signal appears normal. IMPRESSION: 1. Extensive predominately right-sided bifrontoparietal and right gangliocapsular and thalamic heterogeneous mass crossing the callosal body and genu with involvement of the septum pellucidum, likely reflecting glioblastoma multiforme. Surrounding vasogenic edema cannot be reliably differentiated from non-enhancing infiltrative neoplasm on this exam. 2. Associated predominately right-sided mass effect results in 5 mm leftward midline shift with subfalcine herniation of the right cingulate gyrus and effacement of the suprasellar cistern. Slightly bulbous left temporal horn may reflect early ventricular entrapment. CT scan brain Hx of Present Illness Hx of Present Illness The patient is a 42 year old female who describes not feeling well since Jan. She complains of dizziness, imbalance, and fatigue. She denies headache. Her PCP ordered a CT scan and this showed a large intra-axial mass, for which she was referred to ER. Subsequent MRI shows large intra-axial enhancing mass with satellite lesions, edema, compression of ventricular system. She denies any personal significant medical history. No hx of CA. Hx of Present Illness Patient is a female with a past medical history significant for hypertension, dyslipidemia, diabetes mellitus who presents to [facility] after being sent by her primary care provider. Patient has been suffering for 4 months of progressively worsening balance issues as well as intermittent left-sided upper extremity and lower extremity weakness. Patient had multiple insurance issues and has not been able to follow-up with the regular doctor. Patient states that she feels well but she does have left- sided weakness that comes and goes. Patient does have a very small headache at this time but otherwise has no acute complaints. Patient denies chest pain, shortness of breath, nausea, vomiting, abdominal pain, leg pain Hospital Course Charming 42-year-old female admitted with the above findings. She was placed on IV steroids which had the expected effect of driving her sugars up. She is now stabilized and will follow up with Dr. Chang in his office. Home Meds No Active Prescriptions or Reported Meds Follow-up Plan Neurosurgery-Dr. Chang within the next few days Primary Care Provider Not On Staff Doctor Time spent on discharge: > 30 minutes Pending Labs Laboratory Tests Test 06/22/18 17:02 06/22/18 20:42 06/23/18 00:26 06/23/18 01:34 Bedside 301 329 364 355 Glucose mg/dL (70-220) mg/dL (70-220) mg/dL (70-220) mg/dL (70-220) Test 06/23/18 05:31 06/23/18 08:07 06/23/18 12:12 Bedside 353 359 276 Glucose mg/dL (70-220) mg/dL (70-220) mg/dL (70-220) Copies To: CC: CAM CHANG MD ; GAVIOTA HENDRIX MD Jun 23, 2018 13:00
--- NOTE | 2018-06-23 13:01 | PDOCDIS ---
Discharge Instructions DIAGNOSIS Discharge Diagnosis Glioblastoma multiforme; diabetes mellitus type 2; CONDITION [id number] Patient Condition: [id number] Fair HOME CARE INSTRUCTIONS: [id number] Special Diet: [id number] Diabetic diet ACTIVITY: [id number] Activity Restrictions: [id number] Do not operate Machinery Do not operate Power Tool FOLLOW UP/APPOINTMENTS Follow-up Plan Neurosurgery-Dr. Chang within the next few days GAVIOTA HENDRIX MD Jun 23, 2018 13:01
[2018-06-23] MEDS ORDERED: LEVE-5 PO (13:02)
[2018-06-23] MEDS ORDERED: NATE60TA PO (13:02)
[2018-06-23] MEDS ORDERED: DEC4 PO (13:02)
[2018-06-23] MEDS ORDERED: METF850T13 PO (13:02)
[2018-06-23] MEDS ORDERED: NATEGLINIDE 60 MG TAB PO SCH (17:35)
[2018-06-23] MEDS ORDERED: DEXAMETHASONE 4 MG TAB PO SCH (18:00)
[2018-06-23] MEDS ORDERED: INSULIN GLARGINE [LANTus] (100 UNITS/ML) SYG SC SCH (20:00)
== END 2018-06-23 16:10 | disposition home or self-care (01) | DRG 54 ==
LOC: E/R 15:33 → PP2 19:19
PROVIDERS: ADMIT Internal Medicine; ATTEND Internal Medicine
DX: C71.8 Malignant neoplasm of overlapping sites of brain (principal); G93.6 Cerebral edema; N39.0 Urinary tract infection, site not specified; I10 Essential (primary) hypertension; E78.5 Hyperlipidemia, unspecified; E11.9 Type 2 diabetes mellitus without complications; R51 Headache
CPT/HCPCS: 36415; 70450; 70553; 71045; 80048; 80061; 81001; 81025; 82962; 83036; 84484; 85025; 85610; 85730; 87086; 93005; 96374; J0696; J1100; J1815; J1953; J7030